=== PATIENT | female | born 1985 | race Caucasian/White ===

== ENCOUNTER 2018-01-25 12:35 | Emergency (ER) | payer MEDICAID ==
--- NOTE | 2018-01-25 14:03 | EDPHY ---
H & P Stated Complaint: cp/sob chills body aches x 1.5 weeks traveling from [place] Time Seen by Provider: 01/25/18 13:54 HPI/ROS: CHIEF COMPLAINT: Chills, myalgias and fatigue HISTORY OF PRESENT ILLNESS: The patient presents the ED for evaluation of ongoing chills, myalgias and fatigue. The patient reportedly was evaluated at emergency department [facility] a week ago. The only thing that was no worthy on her workup was a elevated white blood cell count. The patient denies any cough. She has had some mild myalgias and slight chest discomfort. She denies any abdominal pain, vomiting or diarrhea. The patient did have a negative urinalysis at the time of her ED visit. She denies any symptoms of dysuria. The patient denies any additional acute complaints. REVIEW OF SYSTEMS: A comprehensive 10 point review of systems is otherwise negative aside from elements mentioned in the history of present illness. Source: Patient - Personal History LMP (Females 10-55): 8-14 Days Ago Current Tetanus Diphtheria and Acellular Pertussis (TDAP): Unsure - Medical/Surgical History Hx Asthma: No Hx Chronic Respiratory Disease: No Hx Diabetes: No Hx Cardiac Disease: No Hx Renal Disease: No Hx Cirrhosis: No Hx Alcoholism: No Hx HIV/AIDS: No Hx Splenectomy or Spleen Trauma: No Other PMH: denies - Social History Smoking Status: Never smoked - Physical Exam Exam: General Appearance: Alert, no distress Eyes: Pupils equal and round no pallor or injection ENT, Mouth: Mucous membranes moist Respiratory: There are no retractions, lungs are clear to auscultation Cardiovascular: Regular rate and rhythm Gastrointestinal: Abdomen is soft and nontender, no masses, bowel sounds normal Neurological: A&O, normal motor function, normal sensory exam, normal cranial nerves Skin: Warm and dry, no rashes Musculoskeletal: Neck is supple nontender Extremities: symmetrical, full range of motion Psychiatric: Patient is oriented X 3, there is no agitation Constitutional: Initial Vital Signs Temperature (C) 37.1 C 01/25/18 12:55 Heart Rate 90 01/25/18 12:55 Respiratory Rate 18 01/25/18 12:55 Blood Pressure 113/78 01/25/18 12:55 O2 Sat (%) 94 01/25/18 12:55 O2 Delivery Mode Room Air Allergies/Adverse Reactions: Penicillins Allergy (Verified 01/25/18 12:54) Sulfa (Sulfonamide Antibiotics) Allergy (Verified 01/25/18 12:54) Home Medications: Medication Instructions Recorded Levothyroxine 01/25/18 Naltrexone 01/25/18 Paxil 01/25/18 traZODone 01/25/18 Medical Decision Making - Diagnostics EKG Interpretation: EKG: Complete interpretation has been separately recorded in the [employer] archive. Summary impression: Sinus rhythm, rate 79 ED Course/Re-evaluation: The patient had laboratory testing done today which demonstrates no evidence of leukocytosis, metabolic derangement or aspiration of her liver function test. Patient's EKG demonstrates no evidence of ischemia or arrhythmia. The patient has no clinical evidence of meningitis or bacterial infection. I have told the patient that her laboratory testing is reassuring. I see no need for additional testing based upon her examination today. I do believe that she likely is having mild symptoms from a nonspecific viral illness. The patient will be encouraged to increase her fluid intake and use Tylenol and ibuprofen as needed. The patient will return to the ED for markedly worsening symptoms or other concerns. Differential Diagnosis: Differential diagnosis considered includes asthma, bronchitis, pneumonia, viral syndrome, hepatitis, Ebstein Napier virus, arrhythmia, pericarditis - Data Points Laboratory Results: Laboratory Results 01/25/18 13:40 01/25/18 13:40 01/25/18 01/25/18 01/25/18 13:40 13:40 13:40 WBC 7.99 10^3/uL 10^3/uL (3.80-9.50) RBC 4.21 10^6/uL 10^6/uL (4.18-5.33) Hgb 12.7 g/dL g/dL (12.6-16.3) Hct 39.6 % % (38.0-47.0) MCV 94.1 fL fL (81.5-99.8) MCH 30.2 pg pg (27.9-34.1) MCHC 32.1 g/dL L g/dL (32.4-36.7) RDW 12.8 % % (11.5-15.2) Plt Count 326 10^3/uL 10^3/uL (150-400) MPV 9.5 fL fL (8.7-11.7) Neut % (Auto) 61.6 % % (39.3-74.2) Lymph % (Auto) 23.7 % % (15.0-45.0) [place] % (Auto) 8.8 % % (4.5-13.0) Eos % (Auto) 4.4 % % (0.6-7.6) Baso % (Auto) 1.1 % % (0.3-1.7) Nucleat RBC Rel Count 0.0 % % (0.0-0.2) Absolute Neuts (auto) 4.93 10^3/uL 10^3/uL (1.70-6.50) Absolute Lymphs (auto) 1.89 10^3/uL 10^3/uL (1.00-3.00) Absolute Monos (auto) 0.70 10^3/uL 10^3/uL (0.30-0.80) Absolute Eos (auto) 0.35 10^3/uL 10^3/uL (0.03-0.40) Absolute Basos (auto) 0.09 10^3/uL 10^3/uL (0.02-0.10) Absolute Nucleated RBC 0.00 10^3/uL 10^3/uL (0-0.01) Immature Gran % 0.4 % % (0.0-1.1) Immature Gran # 0.03 10^3/uL 10^3/uL (0.00-0.10) Sodium 140 mEq/L mEq/L (135-145) Potassium 4.2 mEq/L mEq/L (3.3-5.0) Chloride 102 mEq/L mEq/L (97-110) Carbon Dioxide 30 mEq/l mEq/l (22-31) Anion Gap 8 mEq/L mEq/L (8-16) BUN 15 mg/dL mg/dL (7-23) Creatinine 0.8 mg/dL mg/dL (0.6-1.0) Estimated GFR > 60 Glucose 87 mg/dL mg/dL (70-100) Calcium 9.4 mg/dL mg/dL (8.5-10.4) Beta HCG, Qual NEGATIVE Departure - Departure Disposition: Home, Routine, Self-Care Clinical Impression: Viral syndrome Condition: Good Instructions: Viral Syndrome (ED) Additional Instructions: 1. I do recommend Tylenol and ibuprofen for your symptoms of pain and discomfort. 2. Please rest and drink plenty of fluids. 3. Your laboratory testing in the emergency department today is completely normal. 4. I see no indication for antibiotics or evidence of a worrisome finding based upon the workup today. 5. Please return to the ED for markedly worsening symptoms, the development of new symptoms or other concerns.
[2018-01-25 14:42] LABS: PLATELET COUNT 326 10^3/uL (150-400)
[2018-01-25 14:52] VITALS: BP 122/59
--- NOTE | 2018-01-25 15:18 | CPEKG ---
Test Reason : OPEN Blood Pressure : / mmHG Vent. Rate : 079 BPM Atrial Rate : 079 BPM P-R Int : 144 ms QRS Dur : 086 ms QT Int : 385 ms P-R-T Axes : 058 034 046 degrees QTc Int : 442 ms Sinus rhythm Confirmed by Yonatan Isabel ([id number]) on 01/25/2018 3:18:01 PM Referred By: Confirmed By:Yonatan Isabel
== END 2018-01-25 15:19 | disposition home or self-care (01) ==
DX: B34.9 Viral infection, unspecified (principal)

== ENCOUNTER 2018-05-08 17:05 | Emergency (ER) | payer MEDICAID ==
--- NOTE | 2018-05-08 18:14 | EDPHY ---
H & P Stated Complaint: ANXIETY/HAVING TROUBLE GETTING HER ATIVAN REFILLED Time Seen by Provider: 05/08/18 18:13 HPI/ROS: CHIEF COMPLAINT: Anxiety, out of Ativan HISTORY OF PRESENT ILLNESS: The patient presents to the emergency department requesting a refill for Ativan. The patient has a history of anxiety and PTSD. She has been on 1 mg of Ativan 3 times a day on a daily basis for some time. The patient recently moved to [place] from [place] and has had difficulty establishing care with a psychiatrist. The patient denies any suicidal or homicidal thoughts. The patient is scheduled to see a psychiatrist on May 30. She has been to multiple urgent cares and other emergency department trying to get her chronic Ativan refilled. The patient typically experiences significant withdrawal symptoms and very significant agoraphobia when she does not have access to the medication. The patient contracts for safety. She has no acute medical complaints. REVIEW OF SYSTEMS: A comprehensive 10 point review of systems is otherwise negative aside from elements mentioned in the history of present illness. Source: Patient Exam Limitations: No limitations - Personal History LMP (Females 10-55): IUD In Place Current Tetanus Diphtheria and Acellular Pertussis (TDAP): Yes - Medical/Surgical History Hx Asthma: No Hx Chronic Respiratory Disease: No Hx Diabetes: No Hx Cardiac Disease: No Hx Renal Disease: No Hx Cirrhosis: No Hx Alcoholism: No Hx HIV/AIDS: No Hx Splenectomy or Spleen Trauma: No Other PMH: GRAVES DISEASE/PTSD/ANXIETY - Social History Smoking Status: Never smoked - Physical Exam Exam: General Appearance: Alert, no distress Eyes: Pupils equal and round no pallor or injection ENT, Mouth: Mucous membranes moist Respiratory: There are no retractions, lungs are clear to auscultation Cardiovascular: Regular rate and rhythm Gastrointestinal: Abdomen is soft and nontender, no masses, bowel sounds normal Neurological: 5/5 strength noted all 4 extremities Skin: Warm and dry, no rashes Musculoskeletal: Neck is supple nontender Extremities: symmetrical, full range of motion Psychiatric: Alert and oriented x3, no agitation, denies suicidal ideation, denies homicidal ideation Constitutional: Initial Vital Signs Temperature (C) 36.8 C 05/08/18 17:11 Heart Rate 94 05/08/18 17:11 Respiratory Rate 18 05/08/18 17:11 Blood Pressure 117/82 H 05/08/18 17:11 O2 Sat (%) 94 05/08/18 17:11 O2 Delivery Mode Room Air Allergies/Adverse Reactions: Penicillins Allergy (Verified 05/08/18 17:09) Sulfa (Sulfonamide Antibiotics) Allergy (Verified 05/08/18 17:09) Home Medications: Medication Instructions Recorded Levothyroxine 01/25/18 Naltrexone 01/25/18 Paxil 01/25/18 traZODone 01/25/18 Ativan 05/08/18 LORazepam [Ativan] 1 mg PO TID PRN #60 tab 05/08/18 Medical Decision Making ED Course/Re-evaluation: The patient presents to the ED with anxiety. She is having difficulty establishing a relationship with a new prescriber here in [place] but fortunately does have an appointment set up on May 30. I verified that the patient has been on 1 mg of Ativan 3 times a day on a longstanding basis. The patient has been provided a 1 month supply of this medication. The patient will be discharged home in stable condition. She does contract for safety. She has no complaints of suicidal thoughts or uncontrolled depression. Departure - Departure Disposition: Home, Routine, Self-Care Clinical Impression: Anxiety Condition: Good Instructions: Anxiety (ED) Additional Instructions: 1. Follow up with your psychiatrist as scheduled on May 30. 2. Return to the ED for any thoughts of harming herself, worsening depression or anxiety. 3. We will be unable to provide Ativan in the emergency department in the future. Prescriptions: LORazepam [Ativan] 1 mg PO TID PRN #60 tab PRN Reason: for anxiety
[2018-05-08 18:46] VITALS: BP 110/78
== END 2018-05-08 18:45 | disposition home or self-care (01) ==
LOC: EEVIPCON 17:05
DX: Z76.0 Encounter for issue of repeat prescription (principal); F41.9 Anxiety disorder, unspecified; F43.10 Post-traumatic stress disorder, unspecified; Z79.899 Other long term (current) drug therapy

== ENCOUNTER 2018-08-16 15:46 | Emergency (ER) | payer MEDICAID ==
--- NOTE | 2018-08-16 17:17 | EDPHY ---
H & P Time Seen by Provider: 08/16/18 15:57 HPI/ROS: CHIEF COMPLAINT: Vaginal lesions HISTORY OF PRESENT ILLNESS: 33-year-old female presents with a history of developing small vaginal blisters about 2 weeks ago. This occurred immediately the morning after having intercourse with her boyfriend. They do not use a condom. She was seen by provider and told that the lesions were most likely herpes. Patient was placed on valacyclovir. After 10 days of acyclovir patient no longer had the blister. Her HSV serology was negative. GC, and chlamydia were also negative. She had intercourse again with the same partner and again developed ulcer type lesion at the entrance to the introitus with a 2nd "kissing" type lesion. She is concerned regarding the recurrence of these lesions. She also notes that her partner takes Lamictal to which she has an allergy and is wondering if Lamictal may be excreted in semen. Patient also complains of bilateral flank pain, and she has been experiencing bleeding following intercourse. She reports some fevers and chills over the last several days as well. REVIEW OF SYSTEMS: A comprehensive 10 system review of systems was reviewed and is otherwise negative aside from elements mentioned in the history of present illness and medical decision making. PAST MEDICAL HISTORY: IUD. Graves disease. SOCIAL HISTORY: Nonsmoker. VITAL SIGNS Reviewed by me. GENERAL: Well-developed, well-nourished, resting comfortably in no respiratory distress. HEENT: Atraumatic. Eyes: No icterus, no injection. Mouth: moist mucous membranes. No erythema or lesions. Neck: supple with no adenopathy. LUNGS: Clear to auscultation bilaterally, no wheezes, rhonchi or rales. CARDIAC: Regular rate and rhythm, no rubs, murmurs or gallops. ABDOMEN: Soft, mild suprapubic tenderness, nondistended, bowel sounds normal. No right upper quadrant tenderness. BACK: No CVA tenderness. PELVIC: External genitalia: Small ulcerated lesions near the posterior fourchette just inside the labia on either side. No discharge noted. EXTREMITIES: No trauma. No edema. Range of motion is normal throughout. NEURO: Alert and oriented, grossly nonfocal. SKIN: Warm and dry, no rash. PSYCHIATRIC: Normal mentation, no agitation. Smoking Status: Former smoker Constitutional: Initial Vital Signs Temperature (C) 36.6 C 08/16/18 15:51 Heart Rate 84 08/16/18 15:51 Respiratory Rate 16 08/16/18 15:51 Blood Pressure 138/95 H 08/16/18 15:51 O2 Sat (%) 98 08/16/18 15:51 O2 Delivery Mode Room Air Allergies/Adverse Reactions: lamotrigine [From Lamictal] Allergy (Verified 08/16/18 15:50) Penicillins Allergy (Verified 05/08/18 17:09) Sulfa (Sulfonamide Antibiotics) Allergy (Verified 05/08/18 17:09) Home Medications: Medication Instructions Recorded Levothyroxine 01/25/18 traZODone 01/25/18 Prozac 20 MG (*) 08/16/18 valACYclovir [Valtrex (*)] 1,000 mg PO TID 10 Days tab 08/16/18 Medical Decision Making - Diagnostics Imaging Results: Pelvic US Impression: Angulated intrauterine device with the left wing within the myometrium and the right wing not visualized by ultrasound. Recommend direct inspection. Findings and recommendations discussed with Angeles Dominguez MD at 1742 hour, . Dictated By: Pietro Haynes MD Imaging: Discussed imaging studies w/ on call pharmacy technician Radiologist ED Course/Re-evaluation: 33-year-old female with intermittent bleeding following intercourse as well as recurrent ulcerations at the introitus. Patient has provided the labs from her previous visits which demonstrate negative HSV IgG in negative HSV IgM. Lesions were swabbed for HSV PCR. Course discussed briefly with Infectious Disease, Dr. Dominguez, who feels strongly that this is most likely HSV. Ultrasound obtained to evaluate for vaginal bleeding. Patient's IUD may be dislodged. Explain ultrasound results to the patient. Will start patient again on valacyclovir, caution her to use condoms until infectious etiology has been further identified, and also stressed that the IUD may not be effective given its malposition. She will follow up with OBGYN as directed below for further evaluation. Differential Diagnosis: Diff dx considered included but not limited to HSV, syphilis, local trauma, contact allergen, GC or Chlamydia. - Data Points Point of Care Test Results: Urine Collection Date 08/16/18 Collection Time 16:30 HCG Results Negative Departure - Departure Disposition: Home, Routine, Self-Care Clinical Impression: probable hsv Condition: Good Instructions: Genital Herpes Simplex (ED) Additional Instructions: You been given a prescription for valacyclovir. Please take this as directed. I recommend condoms until your sores have healed. [facility] you have also been given referral to OBGYN. Your IUD appears to be angulated a bit. It may not be effective to prevent and it may need to be removed and replaced. Please consult with [facility]. Referrals: Roula Moss, RN, CHEF INSTRUCTOR [Primary Care Provider] - As per Instructions Chan Hercules MD [Medical Doctor] - As per Instructions Prescriptions: valACYclovir [Valtrex (*)] 1,000 mg PO TID 10 Days tab
[2018-08-16 18:28] VITALS: BP 130/76
== END 2018-08-16 18:25 | disposition home or self-care (01) ==
DX: N89.8 Other specified noninflammatory disorders of vagina (principal)
CPT/HCPCS: 81025-ER; 87529-90